=== PATIENT | female | born 1990 | race Two or more races ===

== ENCOUNTER 2020-05-13 19:53 | Emergency (ER) | payer MEDICAID, MEDICARE ==
[~2020-05-13] VITALS: Ht 157.5 cm; Wt 108.8 kg
[2020-05-13] MEDS ORDERED: LEVETIRACETAM 500 MG TABLET ONE (23:17)
[2020-05-13 23:21] VITALS: BP 140/91
--- NOTE | 2020-05-13 23:21 | NUR ---
Patient presents to ER c/o low abd pain and seizure today. Came in for abd pain and had a seizure upon arrival at ER. Hx of seizures. +SOB Denies n/v/d. Patient is in NAD. Respirations even and unlabored.
[2020-05-13 23:25] LABS: BASOPHILS % (AUTO) 1 % (0-1); EOSINOPHILS % (AUTO) 1 % (1-7); LYMPHOCYTES % (AUTO) 34 % (22-44); MEAN CORPUSCULAR HEMOGLOBIN 29.7 pg (27.0-34.8); MEAN CORPUSCULAR HGB CONC 33.4 g/dL (32.4-35.8); MEAN PLATELET VOLUME 7.1 fL (7.4-10.4); MONOCYTES % (AUTO) 7 % (2-9); NEUTROPHILS % (AUTO) 58 % (42-75); PLATELET COUNT 255 x10^3/uL (130-400); RED BLOOD COUNT 4.28 x10^6/uL (3.82-5.3); RED CELL DISTRIBUTION WIDTH 13.4 % (9.6-15.2)
[2020-05-13] MEDS ORDERED: LEVETIRACETAM 500 MG TABLET PO ONE (23:30)
[2020-05-13 23:37] LABS: ALANINE AMINOTRANSFERASE 15 U/L (12-78); ALBUMIN 3.6 g/dL (3.4-5.0); ANION GAP 6 mmol/L (5-15); CALCIUM 8.7 mg/dL (8.5-10.1); CHLORIDE 107 mmol/L (98-107); CREATININE 0.95 mg/dL (0.55-1.02)
[2020-05-13 23:38] LABS: MD NO
[2020-05-13 23:42] LABS: ALKALINE PHOSPHATASE 59 U/L (45-117); BILIRUBIN,TOTAL 0.4 mg/dL (0.2-1.0); TOTAL PROTEIN 7.8 g/dL (6.4-8.2)
[2020-05-14] MEDS ORDERED: KETOROLAC 60 MG/2 ML ONE (00:12)
[2020-05-14 00:19] LABS: MICROSCOPIC INDICATED
[2020-05-14] MEDS ORDERED: KETOROLAC 60 MG/2 ML IM ONE (00:30)
== END 2020-05-14 00:58 | disposition home or self-care (01) ==
LOC: ED 23:33
DX: R10.31 Right lower quadrant pain (principal); R10.32 Left lower quadrant pain; R06.02 Shortness of breath; Z76.0 Encounter for issue of repeat prescription; R00.0 Tachycardia, unspecified; I10 Essential (primary) hypertension; E11.9 Type 2 diabetes mellitus without complications; G40.909 Epilepsy, unspecified, not intractable, without status epilepticus; Z91.19 Patient's noncompliance with other medical treatment and regimen
CPT/HCPCS: 36415; 80053; 81001; 83690; 84703; 85025; 87086; 93005; 96372; 99284; J1885